=== PATIENT | female | born 1965 | race Caucasian/White ===

== ENCOUNTER 2017-01-07 20:00 | Emergency (ER) | payer OTHER ==
[~2017-01-07] VITALS: Ht 165.1 cm; Wt 68.0 kg
[2017-01-07 20:03] VITALS: BP 127/97
== END 2017-01-08 00:55 | disposition home or self-care (01) ==
LOC: ER 20:07 → UNDOADMIN 23:00 → MED 23:00 → ER 01-08 00:55
DX: Z00.8 Encounter for other general examination (principal); Z85.3 Personal history of malignant neoplasm of breast
CPT/HCPCS: A4606; Z7610